=== PATIENT | female | born 1970 | race Caucasian/White ===

== ENCOUNTER → 2017-01-13 | Outpatient (CLI) | payer MEDICARE, MEDICAID ==
[~2017-01-13] MED LIST: ATORVASTATIN CA20 M1 PO; CATAPRES GENER0.1 MG PO; CITALOPRAM40 M1 PO; CYMBALTA60 MG PO; FLEXERIL10 MG PO; LATUDA20 MG PO; LODINE200 MG PO; PHENERGAN 25MG.25 M1 PO; ULTRAM50 MG PO; XANAX 1MG TABLET1 MG PO
[2017-01-13 13:54] LABS: AMPHETAMINES/METAMPHETAMINES NEGATIVE ng/mL (<1000)
== END ==
LOC: LAB 12:46
PROVIDERS: Emergency Medicine
DX: Z79.899 Other long term (current) drug therapy (principal)